=== PATIENT | male | born 1965 | race Caucasian/White ===

== ENCOUNTER 2019-09-15 09:54 | Inpatient (IN) | payer BC ==
[~2019-09-15] VITALS: Ht 167.6 cm; Wt 70.8 kg
[2019-09-15 10:07] VITALS: BP 147/78
--- NOTE | 2019-09-15 10:11 | NUR ---
Patient ambulated to bed 10. RN evaluating patient at bedside.
--- NOTE | 2019-09-15 10:32 | NUR ---
PATIENT RESTING IN BED, SIDE RAIL X1
--- NOTE | 2019-09-15 10:36 | NUR ---
DR CONDE AT BEDSIDE
[2019-09-15] MEDS ORDERED: NACL 0.9% 1,000 ML IV ONE (10:40)
[2019-09-15 11:00] LABS: BASOPHILS % (AUTO) 0.7 % (0.0-2.0); EOSINOPHILS # (AUTO) 0.1 K/uL (0-0.4); EOSINOPHILS % (AUTO) 2.4 % (0.0-4.0); HEMATOCRIT 43.7 % (36-52); HEMOGLOBIN 14.4 g/dL (12.0-18.0); LYMPHOCYTES # (AUTO) 0.7 K/uL (2.0-11.5); LYMPHOCYTES % (AUTO) 14.3 % (20.5-51.1); MEAN CORPUSCULAR HEMOGLOBIN 31 pg (27-31); MEAN CORPUSCULAR HGB CONC 33 g/dL (33-37); MEAN CORPUSCULAR VOLUME 94.1 fL (80-94); MONOCYTES # (AUTO) 0.5 K/uL (0.8-1.0); MONOCYTES % (AUTO) 9.2 % (1.7-9.3); NEUTROPHILS # (AUTO) 3.6 K/uL (1.8-7.7); NEUTROPHILS % (AUTO) 73.4 % (42.2-75.2); PLATELET COUNT (AUTO) 130 K/uL (140-450); RED BLOOD CELL COUNT(AUTO) 4.64 MIL/uL (4.20-6.10); RED CELL DISTRIBUTION WIDTH 13.6 % (11.6-13.7)
[2019-09-15 11:07] LABS: ANION GAP 13.1 (8-16); CARBON DIOXIDE 27.8 mmol/L (21-32); CREATININE 0.8 mg/dL (0.6-1.3); POTASSIUM 3.9 mmol/L (3.5-5.1)
--- NOTE | 2019-09-15 11:26 | NUR ---
TAKEN TO CT VIA WHEELCHAIR
--- NOTE | 2019-09-15 11:39 | NUR ---
Patient returned from CT scan. RN re-evaluating patient at bedside.
[2019-09-15] MEDS ORDERED: metroNIDAZOLE 500 MG/NS PREMIX 100 ML IV ONE (12:30)
[2019-09-15] MEDS ORDERED: PIPERACILLIN/TAZOBACTAM 3.375 GM in DEXTROSE 5% 50 ML IV ONE (12:30)
[2019-09-15] MEDS ORDERED: PIPERACILLIN/TAZOBACTAM 3.375 GM VIAL IV ONE ×2 (12:32→20:08)
[2019-09-15] MEDS: NACL 0.9% 1,000 ML IV SCH (13:08)
[2019-09-15] MEDS ORDERED: ACETAMINOPHEN 325 MG TAB PO PRN (13:10)
[2019-09-15] MEDS ORDERED: ONDANSETRON 4 MG/2 ML VIAL IVP PRN (13:10)
[2019-09-15] MEDS ORDERED: HYDROcodone/APAP 5/325 MG 1 TAB TAB PO PRN (13:10)
--- NOTE | 2019-09-15 13:35 | NUR ---
Patient will be admitted to care of . Admited to MED SURGE. Will go to [id number]. Belongings list completed. Report to SUSAN FIELDS.
--- NOTE | 2019-09-15 13:35 | NUR ---
Note yaron in ED - 09/15/19 at 1349 by [email or web address] Patient will be admitted to care of . Admited to MED SURGE. Will go to [id number]. Belongings list completed. Report to SUSAN FIELDS.
--- NOTE | 2019-09-15 13:40 | NUR ---
PT ADMITTED FROM ER AT THIS TIME. PT ADMITTED FROM HOME, C/C OF SWELLING AND PAIN IN RIGHT BUTTOCKS. PT AAOX4, NO DISTRESS NOTED, DENIES PAIN AT TIME OF ADMISSION. RESPIRATIONS EVEN AND UNLABORED ON ROOM AIR, CLEAR BREATH SOUNDS. CELLULITIS PRESENT ON RIGHT BUTTOCKS, CLOSED WOUND. IV IN PLACE L AC 18G PATENT AND ASYMPTOMATIC INFUSING PER ORDER. PT AMBULATORY, CONTINENT. SAFETY MEASURES IN PLACE. CALL LIGHT WITHIN REACH. BED IN LOW POSITION. WILL CONTINUE TO MONITOR.
--- NOTE | 2019-09-15 15:49 | NUR ---
PT IN BED WATCHING TV. DENIES PAIN. NO DISTRESS NOTED. SAFETY MEASURES IN PLACE. CALL LIGHT WITHIN REACH. WILL CONTINUE TO MONITOR.
[2019-09-15] MEDS ORDERED: DEXTROSE 50% 50 ML SYR IVP PRN (15:50)
[2019-09-15] MEDS ORDERED: INSULIN LISPRO SLIDING SCALE 100 UNITS/ML VIAL SUBQ PRN (15:50)
[2019-09-15 16:00] VITALS: BP 122/79
[2019-09-15] MEDS ORDERED: LOSA50TA66 PO (16:31)
[2019-09-15] MEDS ORDERED: METF500T PO (16:31)
[2019-09-15] MEDS: BLOOD GLUCOSE MONITORING 1 DEV DEV FS SCH ×2 (16:44→20:11)
--- NOTE | 2019-09-15 17:42 | NUR ---
PT IN BED, IN THE COMPANY OF A FAMILY MEMBER AT THE BEDSIDE. NO DISTRESS NOTED, DENIES PAIN AT THIS TIME. SAFETY MEASURES IN PLACE. CALL LIGHT WITHIN REACH. WILL CONTINUE TO MONITOR.
--- NOTE | 2019-09-15 19:06 | NUR ---
REPORT GIVEN TO NIGHT NURSE FOR CONTINUITY OF CARE.
--- NOTE | 2019-09-15 19:06 | NUR ---
RECIEVED PT. AAOX4 , NID , DENIES PAIN , IV SITE INTACT AND PATENT , ON SAFETY PRECAUTION PROTOCOL , PLAN OF CARE DISCUSSED AND VERBALIZE UNDERSTANDING - CALL LIGHT WITHIN REACH . WILL CONT. TO MONITOR.
[2019-09-15] MEDS: PIPERACILLIN/TAZOBACTAM 3.375 GM in DEXTROSE 5% 50 ML IV SCH (20:13)
--- NOTE | 2019-09-15 21:34 | NUR ---
[facility] SPECIMEN VERIFY - LAB SAID THEY GOT IT.
--- NOTE | 2019-09-15 22:00 | NUR ---
MADE ROUNDS . NO COMPLAIN MADE AT THIS TIME . CALL LIGHT WITHIN REACH .
[2019-09-16] VITALS: BP 122/76
--- NOTE | 2019-09-16 | NUR ---
NO COMPLAIN MADE
[2019-09-16] MEDS: NACL 0.9% 1,000 ML IV SCH ×2 (02:40→14:19)
[2019-09-16] MEDS: PIPERACILLIN/TAZOBACTAM 3.375 GM in DEXTROSE 5% 50 ML IV SCH ×2 (05:13→13:38)
[2019-09-16] MEDS: BLOOD GLUCOSE MONITORING 1 DEV DEV FS SCH ×3 (06:13→17:00)
[2019-09-16 07:00] LABS: BASOPHILS % (AUTO) 0.8 % (0.0-2.0); EOSINOPHILS # (AUTO) 0.1 K/uL (0-0.4); EOSINOPHILS % (AUTO) 3.7 % (0.0-4.0); HEMATOCRIT 42.1 % (36-52); HEMOGLOBIN 13.8 g/dL (12.0-18.0); LYMPHOCYTES # (AUTO) 1.5 K/uL (2.0-11.5); LYMPHOCYTES % (AUTO) 37.9 % (20.5-51.1); MEAN CORPUSCULAR HEMOGLOBIN 31 pg (27-31); MEAN CORPUSCULAR HGB CONC 33 g/dL (33-37); MEAN CORPUSCULAR VOLUME 94.6 fL (80-94); MONOCYTES # (AUTO) 0.4 K/uL (0.8-1.0); MONOCYTES % (AUTO) 10.4 % (1.7-9.3); NEUTROPHILS # (AUTO) 1.9 K/uL (1.8-7.7); NEUTROPHILS % (AUTO) 47.2 % (42.2-75.2); PLATELET COUNT (AUTO) 131 K/uL (140-450); RED BLOOD CELL COUNT(AUTO) 4.45 MIL/uL (4.20-6.10); RED CELL DISTRIBUTION WIDTH 13.6 % (11.6-13.7); WHITE BLOOD COUNT (AUTO) 3.9 K/uL (4.8-10.8)
--- NOTE | 2019-09-16 07:27 | NUR ---
ENDORSE TO AM SHIFT - PT- STABLE.
--- NOTE | 2019-09-16 07:27 | NUR ---
RECEIVED BEDSIDE REPORT FROM PRODUCTION MANAGER NURSE ESTEE FOR CONTINUITY OF CARE. PT IS AWAKE AND RESTING ON BED. PT SPEAKS ENGLISH AND ABLE TO UNDERSTAND MINIMAL OF [place]. RESPIRATION EVEN AND UNLABORED ON RA. NO SIGNS OF DISTRESS NOTED. IV ON LAC 18G, CLEAN AND INTACT. CELLULITIS ON BACK NOTED, PINK AND WARM TO TOUCH, TEJAS, OTHERWISE, SKIN CLEAN AND DRY. PT IS CONTINENT AND ABLE TO AMBULATE. SAFETY MEASURES IN PLACE. BED IN LOW POSITION AND CALL LIGHT WITHIN REACH. INSTRUCTED PT TO USE THE CALL LIGHT FOR ANY ASSISTANCE AND PT WAS AWARE.
[2019-09-16 07:31] LABS: ALBUMIN 3.4 g/dL (3.4-5.0); ANION GAP 11.2 (8-16); CARBON DIOXIDE 28.9 mmol/L (21-32); CREATININE 0.8 mg/dL (0.6-1.3); POTASSIUM 4.1 mmol/L (3.5-5.1); TOTAL BILIRUBIN 0.4 mg/dL (0.0-1.0)
[2019-09-16 08:00] VITALS: BP 119/73
--- NOTE | 2019-09-16 08:18 | NUR ---
PATIENT HAS BEEN SCREENED AND CATEGORIZED LOW NUTRITION RISK. PATIENT WILL BE SEEN WITHIN 7 DAYS OF ADMISSION. 09/22/[address]
[2019-09-16] MEDS ORDERED: ENOXAPARIN 40 MG/0.4 ML SYR SUBQ SCH (09:00)
--- NOTE | 2019-09-16 09:55 | NUR ---
PT AWAKE AND WATCHING TV ON BED. DENIED PAIN, SOB AND DIZZINESS. NO SIGNS OF DISTRESS NOTED. HOLD ENOXAPARIN SUBQ DUE TO LOW PLT 131L FROM AM LAB. SAFETY MEASURES IN PLACE. BED IN LOW POSITION AND CALL LIGHT WITHIN REACH. INSTRUCTED PT TO USE THE CALL LIGHT FOR ANY ASSISTANCE AND PT AWARE.
--- NOTE | 2019-09-16 11:09 | NUR ---
PT AWAKE AND READING MAGAZINE ON BED. DENIED PAIN, SOB AND DIZZINESS. NO SIGNS OF DISTRESS NOTED. SAFETY MEASURES IN PLACE. BED LOW POSITION AND CALL LIGHT WITHIN REACH. INSTRUCTED PT TO USE THE CALL LIGHT FOR ANY ASSISTANCE AND PT AWARE.
--- NOTE | 2019-09-16 11:29 | NUR ---
CHECKED BLOOD GLUCOSE AND RECEIVED 111, NO INSULIN COVERAGE NEEDED. PT AWAKE AND DOING CROSS-WORD BOOK ON BED. NO SIGNS OF DISTRESS NOTED. SAFETY MEASURES IN PLACE.
--- NOTE | 2019-09-16 13:38 | NUR ---
ADMINISTERED ANTIBIOTIC ZOSYN PER MD ORDER, MED ED PROVIDED TO PT AND PT SAID OK. DR PACHECO IS ASSESSING AND TALKING TO PT AT BEDSIDE. NO SIGNS OF DISTRESS NOTED. SAFETY MEASURES IN PLACE.
[2019-09-16] MEDS ORDERED: LIDOCAINE/EPI 1% 1:100000 20 ML VIAL INJ SCH (13:52)
[2019-09-16] MEDS ORDERED: HYDROmorphone 1 MG/ML AMP IVP PRN (13:55)
--- NOTE | 2019-09-16 14:06 | NUR ---
OBTAINED CONSENT FOR I&D, DR PACHECO EXPLAINED TO PT ON RISKS AND BENEFITS, PT WAS AWARE AND AGREEABLE TO PROCEDURE.
--- NOTE | 2019-09-16 14:18 | NUR ---
PREMEDICATED WITH DILAUDID PER DR PACHECO ORDER PRIOR TO I&D BY BEDSIDE.
--- NOTE | 2019-09-16 14:25 | NUR ---
DR PACHECO DID I&D BY BEDSIDE, PT TOLERATED WELL.
[2019-09-16] MEDS ORDERED: ACET-8386 PO (14:58)
[2019-09-16] MEDS ORDERED: AMOX-1000 PO (14:58)
--- NOTE | 2019-09-16 15:58 | NUR ---
INFORMED PT THAT HE WILL BE DC HOME TODAY AND PT WAS AWARE. PER PT, HE WANTS TO LEAVE AFTER DINNER. NO SIGNS OF DISTRESS NOTED. SAFETY MEASURES IN PLACE.
[2019-09-16 16:00] VITALS: BP 125/70
--- NOTE | 2019-09-16 17:01 | NUR ---
ADMINISTERED PNA VACCINE VIA IM ON L DELTOID, VACCINE EDUCATION PROVIDED AND PT SAID OK. CHECKED BG AND RECEIVED 109, NO INSULIN COVERAGE NEEDED. SP I&D ON R POSTERIOR BUTT PICTURE TAKEN, NO BLEEDING, WOUND CARE EDUCATION PROVIDED AND PROVIDED WOUND SUPPLIES. PT VERBALIZED UNDERSTANDING. PER PT, HIS SISTER WILL COME TO PICK HIM UP AFTER DINNER. NO SIGNS OF DISTRESS NOTE. SAFETY MEASURES IN PLACE.
[2019-09-16] MEDS ORDERED: PNEUMOCOCCAL VACCINE 23 MCG/0.5 ML VIAL IMVAC SCH (17:30)
--- NOTE | 2019-09-16 18:05 | NUR ---
PT IS EATING DINNER AND AWAITING FOR SISTER TO ARRIVE FOR DC. NO SIGNS OF DISTRESS NOTED. SAFETY MEASURES IN PLACE.
--- NOTE | 2019-09-16 18:40 | NUR ---
DISCHARGE INSTRUCTION PROVIDED TO PT AND SISTER AT BEDSIDE. EDUCATED PT ON FOLLOW UP WITH MD, SEEK MEDICAL HELP IN CASE OF MEDICAL EMERGENCY, DISEASE MANAGEMENT, MEDICATION REGIMEN, SIDE EFFECTS, WOUND CARE AND DIET. ANSWERED ALL PT' QUESTIONS, PT VERBALIZED UNDERSTANDING. PT IS UP TO DATE WITH FLU VACCINE AND ADMINISTERED PNA VACCINE, EDUCATED PT ON VACCINATION. PROVIDED PT WITH PRESCRIPTION, WOUND CARE SUPPLIES AND PRINTED DC PACKET.REMOVED IV AND CANNULA INTACT AND NO BLEEDING ON IV SITE. REMOVED ALL ARM BANDS. PT CHECKED ALL CABINETS AND TOOK ALL HIS BELONGINGS HOME. PT AMBULATED TO THE FRONT LOBBY. PT IS GOING TO DISCHARGE ACCOMPANY WITH SISTER. PT IS IN STABLE CONDITION.
--- NOTE | 2019-09-20 11:40 | NUR ---
Late entry. Confirmed with RN that Zosyn IV completed at 1300 and Flagyl at 1400
== END 2019-09-16 18:37 | disposition home or self-care (01) | DRG 349 ==
LOC: MED 09:54 → MTU 13:13
PROVIDERS: ADMIT Hospitalist; ATTEND Hospitalist
PROC: 0D9QXZZ Drainage of Anus, External Approach (ICD-10-PCS; principal; 2019-09-16)
DX: K61.0 Anal abscess (principal); I10 Essential (primary) hypertension; E11.9 Type 2 diabetes mellitus without complications; Z79.899 Other long term (current) drug therapy
CPT/HCPCS: 36415; 72193; 80048; 80053; 82948; 83036; 83605; 85025; 87040; 87081; 90732; 99285; J1170; J2001; J2543; J3490; J7030; J7060; Q9967

== ENCOUNTER 2020-01-02 09:24 | Emergency (ER) | payer BC ==
[~2020-01-02] VITALS: Ht 172.7 cm; Wt 77.1 kg
[~2020-01-02 09:24] MED LIST: ACET-8386 PO; AMOX-1000 PO; LOSA50TA66 PO; METF500T PO
[2020-01-02 09:32] VITALS: BP 135/88
--- NOTE | 2020-01-02 09:32 | NUR ---
PT AMBULATED TO ER BED 06
--- NOTE | 2020-01-02 09:43 | NUR ---
54 Y/O MALE PRESENTS WITH ABCESS THAT WAS I&D ON THE . PT REPORTS WOUND IS GIVING HIM PAIN WELL DISCHARGE. DENIES ANY LEG PAIN/BACK PAIN, FEVER, CHILLS, N/V/D. VSS. DENIES SOB/CP. PMH: DM, HTN NKA
[2020-01-02 10:29] VITALS: BP 135/88
--- NOTE | 2020-01-02 10:31 | NUR ---
Patient discharged with v/s stable. Written and verbal after care instructions given and explained. Patient alert, oriented and verbalized understanding of instructions. Ambulatory with steady gait. All questions addressed prior to discharge. ID band removed. Patient advised to follow up with PMD. Rx of KELFEX, BACTRIM, MOTRIN given. Patient educated on indication of medication including possible reaction and side effects. Opportunity to ask questions provided and answered.
== END 2020-01-02 10:31 | disposition home or self-care (01) ==
LOC: MED 09:24
DX: K61.1 Rectal abscess (principal); E11.9 Type 2 diabetes mellitus without complications; I10 Essential (primary) hypertension; Z48.01 Encounter for change or removal of surgical wound dressing; Z79.84 Long term (current) use of oral hypoglycemic drugs; Z79.899 Other long term (current) drug therapy
CPT/HCPCS: 99283